=== PATIENT | male | born 1975 | race Caucasian/White ===

== ENCOUNTER → 2021-03-18 16:58 | Outpatient (CLI) | payer BC, SELFPAY | PROVIDERS: Visit Provider Nurse Practitioner | DX: U07.1 COVID-19 (principal) | CPT/HCPCS: C9803; U0003; U0005 ==

== ENCOUNTER 2021-05-25 19:42 | Emergency (ER) | payer BC, SELFPAY ==
[2021-05-25 19:37] VITALS: BP 120/63; PULSE 77; RESP 18; TEMP 37.1; O2SAT 97; BMI 40.0
--- NOTE | 2021-05-25 19:55 | HMH.EDGENADL ---
ED Disposition Clinical Impression: Laceration Disposition: Home, Self-Care Condition on Discharge: Good Instructions: DI for Laceration Repair, DI for Wound Infection Additional Instructions: watch out for signs of infection as we discussed. Return to the emergency department for any new or concerning symptoms. Referrals: Provider,Referral, [Primary Care Provider] - - Critical Care Critical Care Time: No Attestation: On 05/25/21, the high probability of a clinically significant, sudden or life threatening deterioration of the following system(s) required my full and direct attention, intervention and personal management. The time I documented below is in addition to time spent performing reported procedures but includes the following listed in this critical care notation. Medical Decision Making - Medical Records Medical records reviewed: Yes: I reviewed the patient's medical records. - Michael Inquiry Pt receiving controlled substance: No Vital Signs: 05/25/21 19:37 05/25/21 20:00 05/25/21 20:31 Temperature 98.8 F Temperature Source Oral Pulse Rate 84 76 Pulse Rate [Left] 77 Respiratory Rate 18 Blood Pressure 122/77 116/60 Blood Pressure [Right Arm] 120/63 Blood Pressure Mean [Right Arm] 82 Blood Pressure Source Blood Pressure Position 02 Sat by Pulse Oximetry 97 96 95 Oxygen Delivery Method Room Air 05/25/21 20:50 Temperature 98.1 F Temperature Source Oral Pulse Rate 78 Pulse Rate [Left] Respiratory Rate 18 Blood Pressure 112/73 Blood Pressure [Right Arm] Blood Pressure Mean [Right Arm] Blood Pressure Source Automatic Cuff Blood Pressure Position Sitting 02 Sat by Pulse Oximetry Oxygen Delivery Method Room Air Orders (Tests/Meds): ED MEDICATIONS Discontinued Medications Generic Name Dose Route Start Last Admin Trade Name Joaquinq PRN Reason Stop Dose Admin Tetanus/Diphtheria Toxoids 0.5 ml 05/25/21 20:10 05/25/21 20:13 Tetanus-Diphth Toxoid, Adult 0.5ml Syr IM 05/25/21 20:11 0.5 ml .ONCE ONE Administration Medical Decision Narrative: Patient laceration repaired. Given tdap shot as not uptodate. Discussed return precautions. General Adult HPI - General Stated complaint: lac Time Seen by Provider: 05/25/21 19:55 - History of Present Illness HPI narrative: Patient sustained laceration on left forearm attempting to load sheet metal. States metal grazed down his arm. Denies numbness, tingling, decreased sensation. No other complaints. - Related Data Allergies Allergy/AdvReac Type Severity Reaction Status Date / Time No Known Allergies Allergy Verified 05/25/21 20:08 [facility] History - Hepatitis A Screen Attestation statement:: This patient has been screened for Hepatitis A risk factors. I have reviewed the patient's past medical history: Yes ROS Obtained: Yes All systems reviewed & no additional complaints Physical Exam - General General appearance: alert, in no apparent distress - Head Head exam: atraumatic, normocephalic - Respiratory Respiratory exam: Present: normal lung sounds bilaterally - Cardiovascular Cardiovascular exam: Present: regular rate, normal rhythm - Abdominal Exam Abdominal exam: Present: soft. Absent: distention - Extremities Exam Extremities exam: Present: other (patient with 6x1cm laceration on forearm. 2+ pulses, neurovascularly intact. ) - Neurological Exam Neurological exam: Present: alert, oriented X3 - Psychiatric Psychiatric exam: Present: normal affect, normal mood - Skin Skin exam: Present: warm, dry Procedures - Laceration Laceration 1 Site: upper extremity Side (If applicable): left Depth: simple, single layer Local Anesthetic: lidocaine 1% Pre-repair: irrigated extensively Skin layer closed with: nylon Size (cm): 6-0 Number of sutures: 6 Technique: simple, interrupted
[2021-05-25 20:00] VITALS: BP 122/77; PULSE 84; O2SAT 96
[2021-05-25 20:31] VITALS: BP 116/60; PULSE 76; O2SAT 95
[2021-05-25 20:50] VITALS: BP 112/73; PULSE 78; RESP 18; TEMP 36.7; O2SAT 100
== END 2021-05-25 20:58 | disposition home or self-care (01) ==
PROVIDERS: Emergency Provider Emergency Medicine
DX: S51.812A Laceration without foreign body of left forearm, initial encounter (principal); W26.9XXA Contact with unspecified sharp object(s), initial encounter; Y92.9 Unspecified place or not applicable; Z23 Encounter for immunization
CPT/HCPCS: 12002; 90714; 99282

== ENCOUNTER 2024-01-31 13:21 | Emergency (ER) | payer OTHER, SELFPAY ==
[2024-01-31 13:50] VITALS: BP 150/90; PULSE 99; RESP 18; TEMP 37.5; O2SAT 98; BMI 33.9
--- NOTE | 2024-01-31 14:01 | ED_ITS ---
Discharge Plan Disposition Patient Disposition: Home, Self-Care Condition: Good Prescriptions Prescriptions: New benzonatate 100 mg capsule 100 mg PO TID PRN (Reason: cough) Qty: 30 0RF amoxicillin-pot clavulanate 875-125 mg Tablet 1 tab PO Q12H Qty: 20 0RF guaifenesin [Mucinex] 1,200 mg tablet extended release 12hr 1,200 mg PO Q12H Qty: 20 0RF methylprednisolone [Medrol (Ramsey)] 4 mg tablets,dose pack See Rx Instructions .Route .COMPLEX 6 Days Qty: 21 0RF Rx Instructions: taper pack; No Action furosemide 40 mg tablet 40 mg PO DAILY Patient Comments: TAKE 1 TABLET BY MOUTH EVERY DAY paroxetine HCl 10 mg tablet 10 mg PO DAILY Patient Comments: TAKE 1 TABLET BY MOUTH EVERY DAY metoprolol succinate 25 mg tablet extended release 24 hr 25 mg PO DAILY Patient Comments: TAKE 1 TABLET BY MOUTH EVERY DAY losartan 100 mg tablet 100 mg PO DAILY Patient Comments: TAKE 1 TABLET BY MOUTH EVERY DAY potassium chloride [Klor-Con M10] 10 mEq tablet,ER particles/crystals 10 meq PO DAILY Patient Comments: TAKE 1 TABLET BY MOUTH EVERY DAY Referrals Follow up/Referrals: Giovani Beltran [Primary Care Provider] - See instructions Activity Restrictions/Add. Instructions Additional Instructions/Restrictions: *Monitor Temp, Over the counter Motrin or Tylenol as directed/as needed Tylenol every 4 hours and Motrin every 6 hours (as long as your family doctor has told you that you can take it) for fever or pain. and straight to ER if unable to lower temp less than 101.0 after medication given *Warm salt water gargles may help to soothe the throat *Throat Lozenges? *Warm fluids like tea with honey may help to soothe the throat? *Sleep elevated *Humidifier/Vaporizer Your throat swab was sent for culture. Those results are typically sent to your primary care. Be sure to follow up in 2-3 days with your family doctor/primary care physician if no improvement so they can review those result and treat if necessary. If you don?t have a primary care doctor, I recommend you get one but in the mean time, you will have to return to a walk in clinic Follow up IMMEDIATELY for new or worsening symptoms or no Noticeable improvement over the next 48-72 hours. 911 for difficulty breathing or swallowing Clinical Impressions Clinical Impression: Sinusitis Qualifiers: Sinusitis location: unspecified location Chronicity: unspecified Qualified Code(s): J32.9 - Chronic sinusitis, unspecified Instructions Patient Instructions: Sinusitis, DI for Sinusitis Print Language Print Language: Polish Discharge ED Provider: Kennedi Mendoza [facility] General Stated complaint: head chest congestion Mode of Arrival: Ambulatory Source of Information: Patient Limitations: No Limitations Time Seen by Provider: 01/31/24 14:01 Description of Symptoms (Recalled from Triage Doc. by RN): PATIENT C/O BODY ACHES, WATERY EYES, COUGH, EAR PAIN, AND RUNNY NOSE THAT STARTED A COUPLE DAYS AGO HEENT Symptoms (Recalled from RN notes): Yes Resp Symptoms (Recalled from RN notes): Yes Skin Symptoms (Recalled from RN notes): Yes MS Symptoms (Recalled from RN notes): No Functional Status (Recalled from RN notes): WNL History of Present Illness Provider Complaint: Patient states that he has been having sinus congestion and pressure for about a week no having body aches, chills, headache, cough and ches t congestion and sore throat Related Data Home Medications ?Medication ?Instructions ?Recorded ?Confirmed furosemide 40 mg tablet 40 mg PO DAILY 01/31/24 01/31/24 losartan 100 mg tablet 100 mg PO DAILY 01/31/24 01/31/24 metoprolol succinate 25 mg 25 mg PO DAILY 01/31/24 01/31/24 tablet,extended release 24 hr paroxetine HCl 10 mg tablet 10 mg PO DAILY 01/31/24 01/31/24 potassium chloride 10 mEq 10 meq PO DAILY 01/31/24 01/31/24 tablet,extended release(part/cryst) (Klor-Con M) Previous Rx's ?Medication ?Instructions ?Recorded amoxicillin 875 mg-potassium 1 tab PO Q12H #20 tabs 01/31/24 clavulanate 125 mg tablet benzonatate 100 mg capsule 100 mg PO TID PRN cough #30 caps 01/31/24 guaifenesin 1,200 mg tablet, 1,200 mg PO Q12H #20 tabs 01/31/24 extended release 12 hr (Mucinex) methylprednisolone 4 mg tablets in See Rx Instructions .Route 01/31/24 a dose pack (Medrol (Ramsey)) .COMPLEX 6 days #21 tabs Allergies Allergy/AdvReac Type Severity Reaction Status Date / Time No Known Allergies Allergy Verified 05/25/21 20:08 Worker's Comp Is this a Worker's Comp case?: No [facility] Disclaimer: The information contained in this section may have been updated after the patient was seen, as this information can be updated by other users. Medical History (Updated 01/31/24 @ 14:36 by Kennedi Mendoza APRN) Hypertension Atrial fibrillation Social History Smoking Status: Unknown if ever smoked alcohol intake: never current occupational status: employed ROS Obtained: Yes All systems reviewed & no additional complaints except as documented and Yes Systems reviewed as appropriate & no additional complaints except as documented Constitutional Constitutional: Reports system reviewed and no additional complaints, except as documented, Reports as per HPI, Reports fever(s) and Reports headache(s) ENT Ears, Nose, Mouth, and Throat: Reports system reviewed and no additional complaints, except as documented, Reports as per HPI, Reports headache(s), Reports sinus pain, Reports sinus pressure and Reports sore throat Cardiovascular Cardiovascular: Reports system reviewed and no additional complaints, except as documented and Reports as per HPI Respiratory Respiratory: Reports system reviewed and no additional complaints, except as documented, Reports as per HPI, Reports chest congestion and Reports cough Gastrointestinal Gastrointestingal: Reports system reviewed and no additional complaints, except as documented and as per HPI Musculoskeletal Musculoskeletal: Reports system reviewed and no additional complaints, except as documented and Reports as per HPI Neurologic Neurologic: Reports headache(s) Physical Exam General General appearance: alert and in no apparent distress Eye Eye exam: Present normal appearance, PERRL and EOMI Expanded ENT Exam Nose exam: Present sinus tenderness Throat exam: Present tonsillar erythema Respiratory Respiratory exam: Present normal lung sounds bilaterally; Absent respiratory distress or wheezes Cardiovascular Cardiovascular exam: Present regular rate, normal rhythm and normal heart sounds Abdominal Exam Abdominal exam: Present soft and normal bowel sounds; Absent distention or tenderness Neurological Exam Neurological exam: Present alert, oriented X3 and normal gait Medical Decision Making Medical Records Screening: Per USPSTF and CDC recommendations, given the prevalence of disease in our region, it is our hospital?s policy to screen for HIV and viral Hepatitis for all patients aged 18 and over and those with ongoing risk factors. Michael Inquiry Pt receiving controlled substance: No Michael was queried for this patient: No Vital Signs: 01/31/24 13:50 Temperature 98.6 F Temperature Source Oral Pulse Rate [Right Brachial] 78 Respiratory Rate 19 Blood Pressure [Right Arm] 148/76 H Blood Pressure Mean [Right Arm] 100 Blood Pressure Source [Right Arm] Automatic Cuff Blood Pressure Position [Right Arm] Sitting 02 Sat by Pulse Oximetry 100 Oxygen Delivery Method Room Air Lab Data Lab results reviewed: Yes I reviewed the patient's lab results.
[2024-01-31 14:33] LABS: UTC Influenza A Antigen Negative (Negative); UTC Strep Screen (Rapid) Negative (Negative)
[2024-01-31 14:34] LABS: UTC Influenza B Antigen Negative (Negative)
[2024-01-31 14:45] VITALS: BP 150/90; PULSE 99; RESP 18; TEMP 37.5; O2SAT 98
== END 2024-01-31 14:52 | disposition home or self-care (01) ==
PROVIDERS: Emergency Provider Nurse Practitioner; PCP Pediatrics
DX: J32.9 Chronic sinusitis, unspecified (principal)
CPT/HCPCS: 87804; 87880; 99213; G0381

== ENCOUNTER 2024-06-20 14:38 | Outpatient (CLI) | payer OTHER, SELFPAY ==
--- NOTE | 2024-06-20 | CA_ITS ---
APPROVED REPORT EXAM: Comprehensive 2D, Doppler, and color-flow Echocardiogram Orthopedic Cast Specialist: SANGITA Valle, RVS Ht: 6 ft 1 in Wt: 329lbs BSA: 2.66 BP: 130/90 mmHg Indications: HTN, Previou Hx-AFIB Echo Enhancing Agent Comments: Technically limited exam due to extreme body habitus/Poor acoustics with no IV access patient declined contrast 2D Dimensions Left Atrium 3.37 cm LA Volume 126.90 mL LA Volume Index 46.70 mL/m2 (M/F) 16-34 EF AP4 55.50 % GL Strain -17.5 % M-Mode Dimensions RVDd 2.99 cm (0.9-2.6) LA Diam 4.28 cm (1.9-4.0) LVDd 5.04 cm (3.5-5.7) LVDs 3.43 cm (3.5-5.7) IVSd 1.33 cm (0.6-1.1) PWd 1.05 cm (0.6-1.1) EF (Teich) 59.80% EPSs 0.73 cm FS 31.90% EDV (Teich) 120.50 mL TAPSE 2.61 (<1.7) ESV (Teich) 48.50 mL LV Diastology E Decel Time 130 (160-240 msec) E/A Ratio 1.28 MED A' 7.30 cm/s LAT A' 7.30 cm/s Aortic Valve FREDY Index 0.90 cm2/m2 AoV Peak Kevon. 101.0 (50-130 cm/s) AO Peak GR. 4.10 mmHg AO Mean GR. 2.10 (<5 mmHg) AO VTI 20.1 (18-25 cm) FREDY (VTI) 2.45 (2.5-4.5 cm2) Mitral Valve MV A Velocity 57.0 (40-130 cm/s) E/A Ratio 1.28 Tricuspid Valve TR P. Velocity 214.00 cm/s RAP Estimate 10.00 mmHg RVSP 28.30 mmHg Left Ventricle The left ventricle is normal size. The left ventricular systolic function is normal. The left ventricular ejection fraction is within the normal range. There is increased LV wall thickness. There is normal LV segmental wall motion. The left ventricular diastolic function is normal. LVEF is 55%. Right Ventricle The right ventricle is normal size. The right ventricular systolic function is normal. Atria The left atrium size is normal. The right atrium size is normal. There is no Doppler evidence of interatrial shunt. Aortic Valve The aortic valve opens well. There is no aortic valvular stenosis. No aortic regurgitation is present. Mitral Valve The mitral valve is normal in structure. No evidence of mitral valve stenosis. There is no mitral valve regurgitation noted. Tricuspid Valve Tricuspid valve is grossly normal in structure and function. Trace tricuspid regurgitation. There is insufficient TR jet to estimate RVSP. Pulmonic Valve The pulmonary valve is normal in structure. Trace pulmonic regurgitation. Great Vessels The aortic root is normal in size. IVC is normal in size and collapses >50% with inspiration. Pericardium There is no pericardial effusion. Other Information Study Quality: Technically Difficult Conclusion Technically difficult study due to poor acoustic numbers. Normal biventricular systolic function. No significant valvular stenosis or regurgitation. Electronically signed by : Roopa Boykin MD 06/23/2024 22:44:05
== END 2024-06-20 23:59 | disposition home or self-care (01) ==
LOC: RT 14:39
PROVIDERS: PCP Pediatrics; Visit Provider Internal Medicine Cardiovascular Disease
DX: I48.3 Typical atrial flutter (principal); I10 Essential (primary) hypertension
CPT/HCPCS: 93306

== ENCOUNTER 2024-09-23 08:32 | Outpatient (CLI) | payer OTHER, SELFPAY ==
--- NOTE | 2024-09-23 08:34 | XR_ITS ---
FINAL REPORT CLINICAL HISTORY: left foot pain COMPARISON: None FINDINGS: Three views of the left foot show no evidence of acute displaced fracture or dislocation of the visualized bony architecture. Moderate degenerative changes of the 1st MTP joint. Erosions of the 1st metatarsal head could be degenerative or related to gout. There is moderate calcaneal spurring. IMPRESSION: No acute bony abnormality. 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 Reviewed, Interpreted and Dictated by Romeo Reid MD Transcribed by Mabel Monteiro Authenticated and [facility]
--- NOTE | 2024-09-23 08:34 | XR_ITS ---
FINAL REPORT CLINICAL HISTORY: right foot pain COMPARISON: None FINDINGS: Three views of the right foot show no evidence of acute displaced fracture or dislocation of the visualized bony architecture. The joint spaces appear normal. Minimal plantar calcaneal spurring. IMPRESSION: Unremarkable exam. Reviewed, Interpreted and Dictated by Romeo Reid MD Transcribed by Mabel Monteiro Authenticated and [facility]
--- OUTSIDE RECORDS SUMMARY | 2024-09-23 08:36 | XMS_ITS | Encounter Summary ---
Author Organization [place] [address] Care Team Providers Care Forensic Chemist Name Role Phone Becky Moscoso MD Primary Care Provi Opal Mercado DO Primary Care Provider [phone] Giovani Beltran MD Primary Care Provider [phone] Encounter Details Date Type Department Care Team (Late st Contact Info) Description 06/14/2021 Orders Only [facility] [address] [facility] [address] [place] [address] Lauri Fuentes MD [address] [place], [place] [id number] Social History Tobacco Use Types Packs/Day Years Used Date Smoking Tobacco: Never Smokeless Tobacco: Never Alcohol Use Standard Drinks/Week Comments No 0 (1 standard drink = 0.6 oz pur e alcohol) PHQ-2 Answer Date Recorded PHQ-2 Score 0 03/01/2019 Sexually Active Control Partners Comments Yes Female Sex and Gender Information Value Date Recorded Sex Assigned at Not on file Legal Sex Male 6:24 PM EDT Gender Identity Not on file Sexual Orientation Not on file 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 No / Unsure 06/14/2021 7:59 AM EDT documented as of this encounter Functional Status * Is the person deaf or does he/she have serious difficulty hearing? Answer Date of Assessment Author No 03/01/2019 3:02 PM Nisa Ndiaye Suzanne TAHIRA * Is the person blind or does he/she have serious difficulty seeing even when wearing glasses? Answer Date of Assessment Author No 03/01/2019 3:02 PM Nisa Ndiaye SuzanneTAHIRA * Does this person have serious difficulty walking or climbing stairs? Answer Date of Assessment Author No 03/01/2019 3:02 PM Nisa Ndiaye Suzanne TAHIRA * Does this person have difficulty dressing or bathing? Answer Date of Assessment Author No 03/01/2019 3:02 PM Nisa Ndiaye SuzanneTAHIRA * Because of a physical, mental or emotional condition, does this person have difficulty doing errands alone such as visiting a doctor's office or shopping? Answer Date of Assessment Author No 03/01/2019 3:02 PM Nisa Ndiaye Suzanne TAHIRA documented as of this encounter Mental Status * Because of a physical, mental or emotional condition, does this person have serious difficulty concentrating, remembering or making decisions? Answer Entry Date Author No 03/01/2019 3:02 PM Nisa Ndiaye Suzanne TAHIRA documented in this encounter Plan of Treatment Upcoming Encounters Date Type Department Care Team (Late st Contact Info) Description 10/09/2024 2:40 PM EDT Office Visit [facility] [place] [phone] Giovani Beltran MD [address] [facility] [place] [address] 11/25/2024 10:20 AM EDT Office Visit [facility] [address] [place] [address] Maximiliano Ziegler MD [address] [place] [address] [place] [address] documented as of this encounter Goals Goal Patient Goal Type Associated Problems Recent Progress Patient-Stated? Author Blood Pressure < 140/90 Blood Pressure 130/100(05/06 10:28 AM EST) No Tiara Smith RMA Maintain a healthy diet, exercise regularly and maintain an ideal body weight General No Nisa Self RMA documented as of this encounter Procedures Procedure Name Priority Date/Time Associated Diagnosis Comments EP LAB RECORDINGS Routine 06/14/2021 10:09 AM EDT documented in this encounter Results * EP LAB RECORDINGS (06/14/2021 10:09 AM EDT) 06/14/2021 10:0 9 AM EDT us Lauri Fuentes MD CARDIAC CATH ORDERABLES Fi nal Result [facility] [address] [place] [address] documented in this encounter Visit Diagnoses Not on filedocumented in this encounter Care Teams Forensic Chemist Relationship Specialty Start Date End Date Becky Moscoso MD PCP - General Family Medicine 12/11/15 05/14/23 Opal Jaime DO [employer] [place] [address] PCP - General Family Medicine 05/15/23 09/04/24 Giovani Beltran MD [employer] [place] [id number] PCP - General Internal Medicine 09/05/24 documented as of this encounter
--- OUTSIDE RECORDS SUMMARY | 2024-09-23 08:36 | XMS_ITS | Encounter Summary ---
Author Organization [place] [address] Care Team Providers Care Nursing Home Admissions Director Name Role Phone Opal Jaime DO Primary Care Provider [phone] Reason for Visit * Reason Comments Medication Refill Encounter Details Date Type Department Care Team (Late st Contact Info) Description 08/14/2024 Refill [facility] [address] [place] [address] Maximiliano Ziegler MD [address] [place] [address] [place] [address] Medication Refill Social History Tobacco Use Types Packs/Day Years Used Date Smoking Tobacco: Never Smokeless Tobacco: Never Alcohol Use Standard Drinks/Week Comments No 0 (1 standard drink = 0.6 oz pur e alcohol) PHQ-2 Answer Date Recorded PHQ-2 Total Score 0 06/16/2022 Sexually Active Control Partners Comments Yes Female Sex and Gender Information Value Date Recorded Sex Assigned at Not on file Legal Sex Male 6:24 PM EDT Gender Identity Not on file Sexual Orientation Not on file 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 Answer Date of Assessment Author No 03/01/2019 3:02 PM Nisa Ndiaye RMA * Is the person blind or does he/she have serious difficulty seeing even when wearing glasses? Answer Date of Assessment Author No 03/01/2019 3:02 PM Nisa Ndiaye Suzanne TAHIRA * Does this person have serious difficulty walking or climbing stairs? Answer Date of Assessment Author No 03/01/2019 3:02 PM Nisa Ndiaye Suzanne TAIHRA * Does this person have difficulty dressing or bathing? Answer Date of Assessment Author No 03/01/2019 3:02 PM Nisa Ndiaye RMA * Because of a physical, mental or emotional condition, does this person have difficulty doing errands alone such as visiting a doctor's office or shopping? Answer Date of Assessment Author No 03/01/2019 3:02 PM Nisa Ndiaye RMA documented as of this encounter Mental Status * Because of a physical, mental or emotional condition, does this person have serious difficulty concentrating, remembering or making decisions? Answer Entry Date Author No 03/01/2019 3:02 PM Nisa Ndiaye Suzanne TAHIRA documented in this encounter Ordered Prescriptions Prescription Sig Dispense Quantity Refills Last Filled Start Date End Date fUROsemide (LASIX) 40 mg Oral Tablet TAKE 1 TABLET BY MOUTH EVERY DAY 90 Tablet 1 08/16/2024 metoprolol succinate (TOPROL-XL) 25 mg Oral Tablet Sustained Release 24 hr TAKE 1 TABLET BY MOUTH EVERY DAY 100 Tablet 1 08/14/2024 documented in this encounter Miscellaneous Notes * Telephone Encounter - Candie Romeo CPhT - 08/14/2024 10:10 AM EDT Furosemide 40mg - Future Visit: 11-25-24 Last Assessed Visit: 05-06-24 Follow-Up Date: 11-06-24 This patient requires the following labs/vitals. Routing to the office. Serum sodium (6 months), Abnormal serum potassium OR potassium not on file within 6 months, and Serum creatinine (6 months) Metoprolol 25mg - Future Visit: 11-25-24 Last Assessed Visit: 05-06-24 Follow-Up Date: 11-06-24 All protocols passed. Refills approved and sent to requesting pharmacy. Routed to [facility] if applicable. documented in this encounter Plan of Treatment Upcoming Encounters Date Type Department Care Team (Late st Contact Info) Description 10/09/2024 2:40 PM EDT Office Visit [facility] [address] [place] [address] Giovani Beltran MD [address] [facility] [place] [address] 11/25/2024 10:20 AM EDT Office Visit [facility] [address] [place] [address] Maximiliano Ziegler MD [address] [place] [address] [place] [address] documented as of this encounter Goals Goal Patient Goal Type Associated Problems Recent Progress Patient-Stated? Author Blood Pressure < 140/90 Blood Pressure 130/100(05/06 10:28 AM EST) No Tiara Smith RMA Maintain a healthy diet, exercise regularly and maintain an ideal body weight General No Nisa Self RMA documented as of this encounter Visit Diagnoses Not on filedocumented in this encounter Discontinued Medications Medication Sig Discontinue Reason Start Date End Da te metoprolol succinate (TOPROL-XL) 25 mg Oral Tablet Sustained Release 24 hr Take 1 Tablet by mouth daily. 12/07/2023 08/14/2024 fUROsemide (LASIX) 40 mg Oral Tablet Take 1 Tablet by mouth daily. 12/07/2023 08/16/2024 documented as of this encounter Care Teams Nursing Home Admissions Director Relationship Specialty Start Date End Date Opal Jaime DO [address] [place] [address] PCP - General Family Medicine 05/15/23 09/04/24 documented as of this encounter
--- OUTSIDE RECORDS SUMMARY | 2024-09-23 08:36 | XMS_ITS | Clinical Summary ---
Author Organization [facility] Address [address] [place] [address] Care Team Providers Care Designated Broker Name Role Phone Kings Tristan MD Primary Care Provider [phone] Source Comments This information has been disclosed to you from confidential records protectedfrom disclosure by state law. You shall make no further disclosure of thisinformation without the specific, written, and informed release of theindividual to whom it pertains, or as otherwise permitted by law. A generalauthorization for the release of medical or other information is not sufficientfor the purposes of therelease of HIV test results or diagnoses. [id number] Social History Tobacco Use Types Packs/Day Years Used Date Smoking Tobacco: Never Assessed Sex and Gender Information Value Date Recorded Sex Assigned at Not on file Legal Sex Male 9:51 PM EST Gender Identity Not on file Sexual Orientation Not on file Plan of Treatment Not on file Care Teams Designated Broker Relationship Specialty Start Date End Date Kings Tristan MD [address] [place] [id number] PCP - General 06/23/09
--- OUTSIDE RECORDS SUMMARY | 2024-09-23 08:36 | XMS_ITS | Encounter Summary ---
Author Organization [facility] [place] [address] Care Team Providers Care Medical Information Officer Name Role Phone Opal Jaime DO Primary Care Provider [phone] Giovani Beltran MD Primary Care Provider [phone] Reason for Visit * Reason Comments Medication Refill Encounter Details Date Type Department Care Team (Late Contact Info) Description 09/04/2024 Refill [facility] [address] [place] [id number] Opal Jaime DO [address] [place] [id number] Medication Refill Social History Tobacco Use Types [...] 03/01/2019 3:02 PM Nisa Ndiaye RMA * Does this person have serious difficulty walking or climbing stairs? Answer Date of Assessment Author No 03/01/2019 3:02 PM Nisa Ndiaye RMA * Does this person have difficulty dressing [...] 03/01/2019 3:02 PM Nisa Ndiaye RMA documented in this encounter Ordered Prescriptions Prescription Sig Dispense Quantity Refills Last Filled Start Date End Date losartan (COZAAR) 100 mg Oral TabletIndications:E ssential (primary) hypertension TAKE 1 TABLET BY MOUTH EVERY DAY 90 Tablet 09/05/2024 documented in this encounter Miscellaneous Notes * Telephone Encounter - Larisa Zabala CPhT - 09/05/2024 1:06 PM EDT Losartan Future Visit: N/A Last Assessed Visit: 10/03/23 Follow-Up Date: 10/02/24 This patient requires the following labs/vitals. Routing to the office. Abnormal serum potassium OR potassium not on file within 6 months and Serum creatinine (6 months) documented in this encounter Plan of Treatment Upcoming Encounters Date Type Department Care Team (Late st Contact Info) Description 10/09/2024 2:40 PM EDT Office Visit [facility] [address] [place] [address] Giovani Beltran MD [address] [place] [id number] 11/25/2024 10:20 AM EDT Office Visit [facility] [address] [place] [address] Maximiliano Ziegler MD [address] [place] [address] [place] [address] documented as of this encounter Goals Goal Patient Goal Type Associated Problems Recent Progress Patient-Stated? Author Blood Pressure < 140/90 Blood Pressure 130/100(05/06 10:28 AM EST) No Tiara Smith RMA Maintain a healthy diet, exercise regularly and maintain an ideal body weight General No Nisa Self RMA documented as of this encounter Visit Diagnoses Diagnosis Essential (primary) hypertension Unspecified essential hypertension documented in this encounter Discontinued Medications Medication Sig Discontinue Reason Start Date End Da te losartan (COZAAR) 100 mg Oral TabletIndications:Essenti al (primary) hypertension TAKE 1 TABLET BY MOUTH EVERY DAY 04/16/2024 09/05/2024 documented as of this encounter Care Teams Medical Information Officer Relationship Specialty Start Date End Date Opal Jaime DO [address] [place] [id number] PCP - General Family Medicine 05/15/23 09/04/24 Giovani Beltran MD [address] [place] [phone] PCP - General Internal Medicine 09/05/24 documented as of this encounter
--- OUTSIDE RECORDS SUMMARY | 2024-09-23 08:36 | XMS_ITS | Clinical Summary ---
Author Organization [facility] Address [address] [place] [address] Phone Care Team Providers Care Account Services Specialist Name Role Phone Giovani Beltran MD Primary Care Provider [phone] Allergies No known active allergies Medications rOPINIRole (REQUIP) 0.5 mg Oral TabletIndication s:Restless leg TAKE 1 TABLET BY MOUTH EVERY DAY AT NIGHT 30 Tab 1 Active aspirin 325 mg Oral Tablet Take 325 mg by mouth daily. Active MULTI-VITAMIN ORAL Take by mouth. Active PARoxetine (PAXIL) 10 mg Oral TabletIndication s:Generalized anxiety disorder Take 1 Tablet by mouth daily. 90 Tablet 3 4 Active potassium chloride SA (KLOR-CON M10) 10 mEq Oral Tab Sust.Rel. Particle/Crystal TAKE 1 TABLET BY MOUTH EVERY DAY 90 Tablet 3 5 Active metoprolol succinate (TOPROL-XL) 25 mg Oral Tablet Sustained Release 24 hr TAKE 1 TABLET BY MOUTH EVERY DAY 100 Tablet 1 5 Active fUROsemide (LASIX) 40 mg Oral Tablet TAKE 1 TABLET BY MOUTH EVERY DAY 90 Tablet 1 5 Active losartan (COZAAR) 100 mg Oral TabletIndication s:Essential (primary) hypertension TAKE 1 TABLET BY MOUTH EVERY DAY 90 Tablet 5 Active losartan (COZAAR) 100 mg Oral TabletIndication s:Essential (primary) hypertension TAKE 1 TABLET BY MOUTH EVERY DAY 90 Tablet 5 025 Discontinued Active Problems Problem Noted Date Diagnosed Date Typical atrial flutter 09/16/2020 Overview (09/16/2020): Added automatically from request for surgery [id number] Chronic right-sided heart failure 03/31/2020 Overview (03/31/2020): Mild Obesity, Class III, BMI 40-49.9 (morbid obesity) 03/31/2020 Overview (03/31/2020): Counseled diet and exercise. Has been eating healthier. Assessment & Plan (03/31/2020 5:49 PM EST): Wt Readings from Last 3 Encounters: 01/13/20 (!) 332 lb 3.2 oz (150.7 kg) 12/05/19 (!) 345 lb 2 oz (156.5 kg) 11/25/19 (!) 341 lb 3.2 oz (154.8 kg) Urinary hesitancy 02/14/2017 Essential (primary) hypertension 02/14/2017 Chronic midline low back pain without sciatica 1 04/17/2016 B12 deficiency due to diet 02/13/2017 Vitamin D deficiency 02/13/2017 Glucose intolerance (impaired glucose tolerance) 02/13/2017 Assessment & Plan (03/31/2020 5:48 PM EST): Lab Results Component Value Date HGBA1C 5.8 (H) 10/25/2019 HGBA1C 5.3 03/02/2017 HGBA1C 5.7 02/25/2016 Restless leg Resolved Problems Problem Noted Date Diagnosed Date Resolved Date Atrial flutter 03/01/2019 05/18/2021 BMI 40.0-44.9, adult 02/14/201706/16/ 023 Overview (02/14/2017): Counseled on diet and exercise. Flu vaccine need 02/14/2017 05/13/2020 Overview (02/14/2017): Declined. Encounters Date Type Department Care Team Description 09/04/2024 Refill [facility] [address] [place] [address] Opal Jaime, Medication Refill 08/14/2024 Refill [facility] [address] [address] Maximiliano Ziegler MD Medication Refill 07/02/2024 Telephone [facility] [address] [address] Maximiliano Ziegler MD Results (Echo) from Last 3 Months Immunizations Immunization Administration Dates Next Due Influenza Vaccine Quadrivalent 04/09/2018,2015 Influenza Vaccine Quadrivalent PF 02/11/2022 Influenza Virus Vaccine Quadrivalant, Flublok Td (Adult), Absorbed 05/08/1996 Td, adult 05/25/2021 Surgical History Surgery Date Site/Laterality Comments DENTAL SURGERY wisdom teeth removal WRIST GANGLION EXCISION 07/01/2020 Left LEFT WRIST EXCISION OF DORSAL GANGLION CYST; Surgeon: Toni Bermudez MD; Location: [facility]; Service: Orthopedics Medical History Medical History Date Comments Lower leg fracture Left wrist fracture Cardiac dysrhythmia afib and a f lutter Angina pectoris Family History * Patient is adopted Medical History Relation Name Comments Obesity Child Becky Sleep Apnea Child Becky Relation Name Status Comments Child Becky Alive Social History Tobacco Use Types Packs/Day Years Used Date Smoking Tobacco: Never Smokeless Tobacco: Never Tobacco Cessation:Counseling Given: Not Answered Alcohol Use Standard Drinks/Week Comments No 0 [...] file Not on file Not on file Obstetrics History Last Filed Vital Signs Vital Sign Reading Time Taken Comments Blood Pressure 130/100 05/06/2024 10:28 AM EST Pulse 60 05/06/2024 10:59 AM EST Temperature 36.7 C (98 F) 10/03/2023 3:09 PM EDT Respiratory Rate 18 10/03/2023 3:09 PM EDT Oxygen Saturation 99% 05/06/2024 10:28 AM EST Inhaled Oxygen Concentration - - Weight 145.2 kg (320 lb) 05/06/2024 10:28 AM EST Height 188 cm (6' 2 ) 05/06/2024 10:28 AM EST Body Mass Index 41.09 05/06/2024 10:28 AM EST Plan of Treatment Upcoming Encounters Date Type Department Care Team (Late st Contact Info) Description 10/09/2024 2:40 PM EDT Office Visit [facility] [place] [address] [place] [address] Giovani Beltran MD [address] [place] [address] 11/25/2024 10:20 AM EDT Office Visit [facility] [address] [place] [phone] Maximiliano Ziegler MD [address] [place] [address] [place] [address] Health Maintenance Due Date Last Done Comments Hepatitis B Vaccine (1 of 3 - 19+ 3-dose series) 1996 Pneumococcal Vaccine 0-49 (1 of 2 - PCV) 1996 DTaP/TDaP/Td (2 - Tdap) 05/26/2021 05/25/2021, 05/08 Cologuard 2022 Colon Cancer Screening 2022 Colonoscopy 2022 FIT 2022 Sigmoidoscopy 2022 Virtual Colonography 2022 COVID-19 Vaccine ( season) 2023 10/24/2020, 10/03/2020 Annual Wellness Exam 10/02/2024 10/03/2023 Influenza Vaccine (#1) 2024 , 03/01/2019, 04/09/2018, Additional history exists Meningococcal B Vaccine Aged Out No l onger eligible based on patient's age to complete this topic Goals Goal Patient Goal Type Associated Problems Recent Progress Patient-Stated? Author Blood Pressure < 140/90 Blood Pressure 130/100(05/06 10:28 AM EST) No Tiara Smith RMA Maintain a healthy diet, exercise regularly and maintain an ideal body weight General No Nisa Self RMA Insurance [address] [place] [id number] [facility] * Guarantor: IRENE MARQUES Account Type Relation to Patient Date of Phone Billing Address [place] Personal Family 1977 [address] [place] [address] Care Teams Account Services Specialist Relationship Specialty Start Date End Date Giovani Beltran MD [address] [place] [phone] PCP - General Internal Medicine 09/05/24
== END 2024-09-23 23:59 | disposition home or self-care (01) ==
LOC: RAD 08:34
PROVIDERS: Visit Provider Physician Assistant Surgical
DX: M19.072 Primary osteoarthritis, left ankle and foot (principal); M79.671 Pain in right foot
CPT/HCPCS: 73630